=== PATIENT | male | born 1965 | race Caucasian/White ===

== ENCOUNTER 2020-10-20 09:08 | Emergency (ER) | payer MEDICARE ==
[~2020-10-20] VITALS: Ht 175 cm; Wt 110.0 kg
--- NOTE | 2020-10-20 09:43 | ED General ---
General Chief Complaint: General Problems/Pain Stated Complaint: DIARRHEA,LOW EXT SWELLING, WEAKNESS Nursing Triage Note: AMB TO ROOM REPORTS NEW TO AREA CONCERN OVER SWELLING IN LEGS,HAS CHRONIC BACK PAIN HE TAKE HYDROCODONE FOR. HAVNG PAIN IN RIB AREA THAT HYDROCODONE NOT HELPING.C/O BLOATING HAS BEEN CONSTIPATION TOOK LAXTIVE NOW HAVING LOOSE STOOL Source of Information: Patient Exam Limitations: No Limitations History of Present Illness Date Seen by Provider: Oct 20, 2020 Time Seen by Provider: 09:28 Initial Comments Patient is a 55-year-old male who presents to the emergency department with musculoskeletal rib and mid back pain, a little shortness of breath, bloating, diarrhea. Patient tells me that he has a history of hypertension, he takes multiple medications for this, just moved from [place] within the last week. Has established with [facility] last saw provider on of last week. States that he has been a little constipated took a couple of doses of laxative and now has had repeated bouts of diarrhea with five or six episodes since last night. Not mayda black nothing bloody. Patient reports that he is Covid vaccinated with Moderna. He is not aware of any Covid positive contacts during his move or recently. Not a diabetic. Recently started smoking. Recovering alcoholic. Patient states he took his home hydrocodone without any relief of symptoms. Patient is concerned about his feeling of generalized weakness and bloating. No abdominal pain. No nausea or vomiting. He is concerned about some swelling in his bilateral lower extremities. All other review of systems reviewed and negative except as stated. Timing/Duration: 1-2 Days Severity: Moderate Modifying Factors: improves with Immobilization; worse with Movement Associated Systoms: Malaise, Shortness of Air Allergies and Home Medications Allergies Coded Allergies: No Known Allergies (Verified Allergy, Unknown, 10/20/20) Patient Home Medication List Home Medication List Reviewed: Yes Review of Systems Review of Systems Constitutional: see HPI EENTM: no symptoms reported Respiratory: short of breath Cardiovascular: edema Gastrointestinal: diarrhea Genitourinary: no symptoms reported Musculoskeletal: back pain Skin: no symptoms reported All Other Systems Reviewed Negative Unless Noted: Yes Physical Exam Vital Signs Vital Signs - First Documented 10/20/20 09:28 Temp 36.0 Pulse 76 Resp 18 B/P (MAP) 132/66 (88) Pulse Ox 94 Capillary Refill : Less Than 3 Seconds Height, Weight, BMI Height: '" Weight: lbs. oz. kg; 35.00 BMI Method: General Appearance: No Apparent Distress, WD/WN Eyes: Bilateral Eye Normal Inspection, Bilateral Eye PERRL, Bilateral Eye EOMI HEENT: PERRL/EOMI Neck: Normal Inspection Respiratory: Lungs Clear, Normal Breath Sounds, No Accessory Muscle Use, No Respiratory Distress, Other (no significant reproducible tenderness to the ribs/lateral chest wall/thoraic paraspinous muscles) Cardiovascular: Regular Rate, Rhythm, Other (2+ radial pulses; 1-2+ pitting edema biulateral LE) Gastrointestinal: No Pulsatile Mass, Non Tender ((minimal tenderness epigastric)), Soft, Abnormal Bowel Sounds (slightly hyperactive) Back: Normal Inspection (multiple midline scars from previous back surgery), No Vertebral Tenderness Extremity: Normal Capillary Refill, Normal Inspection, Normal Range of Motion, No Calf Tenderness, Pedal Edema Neurologic/Psychiatric: Alert, Oriented x3, No Motor/Sensory Deficits, Normal Mood/Affect, Other (negative SLR bilat; 1+ DTR patella R>L; patient has weakness of bilateral hip flexors - more due to pain, states "right leg weaker than left"; normal sensory function; good dorsiflexion of feet bilat 5/5) Skin: Normal Color, Warm/Dry Progress/Results/Core Measures Suspected Sepsis SIRS Temperature: Pulse: 76 Respiratory Rate: 18 Laboratory Tests 10/20/20 09:48: White Blood Count 9.5 Blood Pressure 132 /66 Mean: 88 Laboratory Tests 10/20/20 09:48: Creatinine 0.89, Platelet Count 243, Total Bilirubin 0.6 Results/Orders Lab Results Laboratory Tests Test 10/20/20 09:36 10/20/20 09:48 Range/Units SARS-CoV-2 RNA (RT-PCR) Not Detected Not Detecte White Blood Count 9.5 4.3-11.0 10^3/uL Red Blood Count 5.04 4.30-5.52 10^6/uL Hemoglobin 15.8 13.3-17.7 g/dL Hematocrit 48 40-54 % Mean Corpuscular Volume 96 80-99 fL Mean Corpuscular Hemoglobin 31 25-34 pg Mean Corpuscular Hemoglobin Concent 33 32-36 g/dL Red Cell Distribution Width 12.9 10.0-14.5 % Platelet Count 243 130-400 10^3/uL Mean Platelet Volume 9.2 9.0-12.2 fL Immature Granulocyte % (Auto) 0 % Neutrophils (%) (Auto) 69 42-75 % Lymphocytes (%) (Auto) 18 12-44 % Monocytes (%) (Auto) 8 0-12 % Eosinophils (%) (Auto) 4 0-10 % Basophils (%) (Auto) 1 0-10 % Neutrophils # (Auto) 6.5 1.8-7.8 10^3/uL Lymphocytes # (Auto) 1.7 1.0-4.0 10^3/uL Monocytes # (Auto) 0.8 0.0-1.0 10^3/uL Eosinophils # (Auto) 0.4 H 0.0-0.3 10^3/uL Basophils # (Auto) 0.1 0.0-0.1 10^3/uL Immature Granulocyte # (Auto) 0.0 0.0-0.1 10^3/uL Sodium Level 139 135-145 MMOL/L Potassium Level 3.6 3.6-5.0 MMOL/L Chloride Level 110 H 98-107 MMOL/L Carbon Dioxide Level 20 L 21-32 MMOL/L Anion Gap 9 5-14 MMOL/L Blood Urea Nitrogen 14 7-18 MG/DL Creatinine 0.89 0.60-1.30 MG/DL Estimat Glomerular Filtration Rate 89 BUN/Creatinine Ratio 16 Glucose Level 119 H 70-105 MG/DL Calcium Level 9.1 8.5-10.1 MG/DL Corrected Calcium 9.0 8.5-10.1 MG/DL Total Bilirubin 0.6 0.1-1.0 MG/DL Aspartate Amino Transf (AST/SGOT) 29 5-34 U/L Alanine Aminotransferase (ALT/SGPT) 51 0-55 U/L Alkaline Phosphatase 66 40-136 U/L Total Protein 6.9 6.4-8.2 GM/DL Albumin 4.1 3.2-4.5 GM/DL My Orders Orders - CHETNA COLLINS MD Ed Iv/Invasive Line Start (10/20/20 09:35) Cbc With Automated Diff (10/20/20 09:35) Comprehensive Metabolic Panel (10/20/20 09:35) Chest 1 View, Ap/Pa Only (10/20/20 09:35) Covid 19 Inhouse Test (10/20/20 09:35) Isolation Central Supply Req (10/20/20 09:35) Orphenadrine Inj (Ed Only) (Norflex Inje (10/20/20 09:45) Medications Given in ED Current Medications Medications Dose Ordered Sig/Kristin Route Start Time Stop Time Status Last Admin Dose Admin Orphenadrine Citrate 30 mg ONCE ONCE IV 10/20/20 09:45 10/20/20 09:47 DC 10/20/20 09:55 30 MG Vital Signs/I&O 10/20/20 09:28 Temp 36.0 Pulse 76 Resp 18 B/P (MAP) 132/66 (88) Pulse Ox 94 Capillary Refill : Less Than 3 Seconds Blood Pressure Mean: 88 Progress Note : Time: 11:00 Progress Note Patient seen and examined, complaining of lower extremity edema mid and upper back pain, abdominal bloating. Evaluation today includes a physical exam, CBC, chemistry, Covid test and chest x-ray. Patient's Covid test is negative, labs and chest x-ray are reviewed and reassuring. Patient's vital signs have been stable. He feels a little bit better after muscle relaxers. Patient is encouraged to drink plenty of fluids. Follow-up if he has worsening symptoms he may need a repeat Covid test. Encouraged to follow-up with his primary care provider. He is comfortable with the plan of care and agreeable. All questions are sought and answered. Patient is stable for discharge. Diagnostic Imaging Diagonstic Imaging: Xray Plain Films/CT/US/NM/MRI: chest Comments [facility] [place], [place] NAME: BOBBY TREJO [facility] REC#: [id number] PT STATUS: REG ER : 1965 PHYSICIAN: CHETNA COLLINS MD ADMIT DATE: 10/20/20/ER Draft Date of Exam:10/20/20 CHEST 1 VIEW, AP/PA ONLY PATIENT HISTORY: SOB, weak bloated. TECHNIQUE: Single frontal view of the chest. COMPARISON: None FINDINGS: The lung volumes are normal. No focal consolidation is seen. No large pleural effusion or pneumothorax is seen. The cardiomediastinal silhouette is normal in size and contour. No acute osseous abnormality is seen. IMPRESSION: No acute pulmonary abnormality seen. Dictated on workstation # [id number] Dict: 10/20/20 1029 Trans: 10/20/20 1033 [facility] [id number] Interpreted by: ABDOUL CRESPO MD Electronically signed by: Departure Impression Primary Impression: Chronic thoracic back pain Qualified Codes: M54.6 - Pain in thoracic spine; G89.29 - Other chronic pain Additional Impressions: Pedal edema Weakness generalized Disposition: 01 HOME, SELF-CARE Condition: Stable Departure-Patient Inst. Decision time for Depature: 10:42 Referrals: KOLTON CROWDER APRN (PCP/Family) Primary Care Physician Patient Instructions: Chronic Pain (DC), Dependent Edema (DC) Add. Discharge Instructions: Continue your daily medications as previously prescribed. Drink lots of fluids to stay well-hydrated, consider Pedialyte fluid replacement. Stool softeners as needed for constipation. Follow-up with your primary care provider or return to the emergency room for any new, concerning or emergent symptoms. CHETNA COLLINS MD Oct 20, 2020 09:43
[2020-10-20] MEDS ORDERED: ORPHENADRINE 60 MG/2 ML (NORFLEX) AMP (ED ONLY) IV ONE (09:45)
[2020-10-20 09:59] LABS: BASOPHILS # (AUTO) 0.1 10^3/uL (0.0-0.1); BASOPHILS % (AUTO) 1 % (0-10); EOSINOPHILS # (AUTO) 0.4 10^3/uL (0.0-0.3); EOSINOPHILS % (AUTO) 4 % (0-10); HEMATOCRIT 48 % (40-54); HEMOGLOBIN 15.8 g/dL (13.3-17.7); LYMPHOCYTES # (AUTO) 1.7 10^3/uL (1.0-4.0); LYMPHOCYTES % (AUTO) 18 % (12-44); MEAN CORPUSCULAR HEMOGLOBIN 31 pg (25-34); MEAN CORPUSCULAR HGB CONC 33 g/dL (32-36); MEAN CORPUSCULAR VOLUME 96 fL (80-99); MEAN PLATELET VOLUME 9.2 fL (9.0-12.2); MONOCYTES # (AUTO) 0.8 10^3/uL (0.0-1.0); MONOCYTES % (AUTO) 8 % (0-12); NEUTROPHILS # (AUTO) 6.5 10^3/uL (1.8-7.8); NEUTROPHILS % (AUTO) 69 % (42-75); PLATELET COUNT 243 10^3/uL (130-400); WHITE BLOOD COUNT 9.5 10^3/uL (4.3-11.0)
[2020-10-20 10:09] LABS: ALBUMIN 4.1 GM/DL (3.2-4.5)
[2020-10-20 10:10] LABS: POTASSIUM 3.6 MMOL/L (3.6-5.0)
[2020-10-20 10:11] LABS: CALCIUM 9.1 MG/DL (8.5-10.1)
[2020-10-20 10:12] LABS: TOTAL PROTEIN 6.9 GM/DL (6.4-8.2)
[2020-10-20 10:14] LABS: BILIRUBIN,TOTAL 0.6 MG/DL (0.1-1.0)
[2020-10-20 10:16] LABS: CREATININE SERUM 0.89 MG/DL (0.60-1.30)
--- NOTE | 2020-10-20 10:34 | Diagnostic Imaging Report ---
PATIENT HISTORY: SOB, weak bloated. TECHNIQUE: Single frontal view of the chest. COMPARISON: None FINDINGS: The lung volumes are normal. No focal consolidation is seen. No large pleural effusion or pneumothorax is seen. The cardiomediastinal silhouette is normal in size and contour. No acute osseous abnormality is seen. IMPRESSION: No acute pulmonary abnormality seen. Dictated by: Dictated on workstation # [id number]
[2020-10-20 11:19] VITALS: BP 119/87
== END 2020-10-20 11:19 | disposition home or self-care (01) ==
LOC: ER 09:13
DX: M54.6 Pain in thoracic spine (principal); G89.29 Other chronic pain; R60.9 Edema, unspecified; R53.1 Weakness; I10 Essential (primary) hypertension; F17.210 Nicotine dependence, cigarettes, uncomplicated; Z20.822 Contact with and (suspected) exposure to COVID-19
CPT/HCPCS: 36415; 71045; 80053; 85025; 87636

== ENCOUNTER → 2021-01-10 | Outpatient (CLI) | payer MEDICARE ==
--- NOTE | 2021-01-10 13:02 | Diagnostic Imaging Report ---
PROCEDURE: CT abdomen without contrast. TECHNIQUE: Multiple contiguous axial images were obtained through the abdomen without the use of intravenous contrast. Auto Exposure Controls were utilized during the CT exam to meet ALARA standards for radiation dose reduction. INDICATION: Right upper quadrant pain of one week's duration. COMPARISON: No relevant comparison. Noncontrasted abdominal CT performed. FINDINGS: The liver's density is consistent with at least mild fatty infiltration. Gallbladder contains no appreciable stone. There was no bile duct dilatation. Low-density lesion in the left hepatic lobe is believed to be a cyst and is evaluated suboptimally owing to the fatty liver and the lack of contrast. No perihepatic or subcapsular fluid collection. There are no opaque kidney stones. There is no hydronephrosis. Spleen is unremarkable. The adrenals are negative. The pancreas is unremarkable. The aorta is nonaneurysmal. There is no small or large bowel obstruction. No ascites, abscess, hematoma, or acute fluid collection. The lung bases are nonacute. There are postsurgical changes to the spine. IMPRESSION: Fatty liver with probable cyst in the left hepatic lobe. No biliary pathology, hydronephrosis, or bowel obstruction. No acute or focal inflammatory process found. Dictated by: Dictated on workstation # [id number]
== END ==
LOC: RAD 11:52
PROVIDERS: ATTEND Nurse Practitioner Family
DX: K76.0 Fatty (change of) liver, not elsewhere classified (principal)
CPT/HCPCS: 74150

== ENCOUNTER 2021-01-22 18:23 | Emergency (ER) | payer MEDICARE ==
[~2021-01-22] VITALS: Ht 175.2 cm; Wt 106.8 kg
[2021-01-22 18:59] LABS: BASOPHILS # (AUTO) 0.1 10^3/uL (0.0-0.1); BASOPHILS % (AUTO) 1 % (0-10); EOSINOPHILS # (AUTO) 0.4 10^3/uL (0.0-0.3); EOSINOPHILS % (AUTO) 4 % (0-10); HEMATOCRIT 50 % (40-54); HEMOGLOBIN 16.7 g/dL (13.3-17.7); LYMPHOCYTES # (AUTO) 2.4 10^3/uL (1.0-4.0); LYMPHOCYTES % (AUTO) 25 % (12-44); MEAN CORPUSCULAR HEMOGLOBIN 31 pg (25-34); MEAN CORPUSCULAR HGB CONC 33 g/dL (32-36); MEAN CORPUSCULAR VOLUME 93 fL (80-99); MEAN PLATELET VOLUME 9.4 fL (9.0-12.2); MONOCYTES # (AUTO) 0.6 10^3/uL (0.0-1.0); MONOCYTES % (AUTO) 7 % (0-12); NEUTROPHILS # (AUTO) 5.9 10^3/uL (1.8-7.8); NEUTROPHILS % (AUTO) 63 % (42-75); PLATELET COUNT 265 10^3/uL (130-400); WHITE BLOOD COUNT 9.4 10^3/uL (4.3-11.0)
[2021-01-22] MEDS ORDERED: NS IV 1000 ML 1,000 ML IV SCH (19:00)
[2021-01-22] MEDS ORDERED: ASPIRIN 81 MG CHEW (CHILDREN'S ASA) PO ONE (19:00)
--- NOTE | 2021-01-22 19:12 | ED Respiratory ---
General Chief Complaint: Respiratory Problems Stated Complaint: STARK,SOB Nursing Triage Note: ARRIVES VIA POV TO ROOM 6. PATIENT AMBULATES TO ROOM WITH ASSITANCE OF A CANE. ALERT AND ORIENTED X4. PRESENTS TODAY WITH A COMPLAINT OF NEW ONSET SHORTNESS OF BREATH Source: patient Exam Limitations: no limitations History of Present Illness Date Seen by Provider: Jan 22, 2021 Time Seen by Provider: 18:30 Initial Comments Patient ER by private conveyance from [facility] with chief complaint he was there because he was having productive cough shortness of air and exertional dyspnea past 2 to 3 days. No chest pain. He has had some right upper quadrant abdominal discomfort under his ribs. Worse on deep inspiration. No fever but does have some chills. He had negative Covid and influenza swab at the clinic he might need CT of his chest rule out a blood clot. He does not recall ambulance. He does take flecainide for irregular heart rate from his java user interface developer back in [place] however he has not followed with a java user interface developer here and does not take blood thinners. Does not take antiplatelets. He does not anything for the pain right now. He has a history of back problems with rods in his back but no abdominal surgeries. No nausea vomiting dysuria diarrhea or constipation. He does endorse upper respiratory tract congestion. In the past he had a CT of his head and was told that it revealed a previous stroke and he has a little bit of chronic right-sided weakness related to this. Allergies and Home Medications Allergies Coded Allergies: No Known Allergies (Verified Allergy, Unknown, 10/20/20) Patient Home Medication List Home Medication List Reviewed: Yes Review of Systems Review of Systems Constitutional: No chills, No diaphoresis EENTM: nose congestion; No ear discharge, No ear pain Respiratory: see HPI, cough, phlegm, short of breath Gastrointestinal: abdominal pain; No constipation, No diarrhea, No nausea Genitourinary: No discharge, No dysuria Musculoskeletal: back pain (Chronic); No joint pain Skin: No change in color, No pruritus, No rash All Other Systems Reviewed Negative Unless Noted: Yes Past Djqocyq-Ulqjbm-Ufgsmu Hx Patient Social History Tobacco Use?: Yes Tobacco type used: Cigarettes Use of E-Cig and/or Vaping dev: No Substance use?: No Alcohol Use?: No Immunizations Up To Date First/Initial COVID19 Vaccinat: 05/30 Second COVID19 Vaccination Daniel: 06/23 Third COVID19 Vaccination Date: [facility] Physical Exam Vital Signs - First Documented 01/22/21 18:34 Temp 36.9 Pulse 81 Resp 16 B/P (MAP) 149/117 (128) Pulse Ox 96 O2 Delivery Room Air Capillary Refill : Less Than 3 Seconds Height: '" Weight: lbs. oz. kg; 34.00 BMI Method: General Appearance: no apparent distress, obese Eyes: Bilateral Eye Normal Inspection, Bilateral Eye PERRL, Bilateral Eye EOMI HEENT: PERRL/EOMI, normal ENT inspection, pharynx normal Neck: full range of motion, supple, normal inspection Respiratory: lungs clear, normal breath sounds, no respiratory distress (Oxygen saturations 98 to 90% without labored breathing, increased accessory muscle use, retractions, tripoding etc.), no accessory muscle use Cardiovascular: normal peripheral pulses, regular rate, rhythm, no edema Gastrointestinal: normal bowel sounds, non tender Extremities: non-tender, normal inspection, normal capillary refill Neurologic/Psychiatric: alert, normal mood/affect, oriented x 3 Skin: normal color, warm/dry Progress/Results/Core Measures Suspected Sepsis SIRS Temperature: Pulse: 81 Respiratory Rate: 16 Laboratory Tests 01/22/21 18:45: White Blood Count 9.4 Blood Pressure 149 /117 Mean: 128 Laboratory Tests 01/22/21 18:45: Creatinine 0.96, INR Comment 0.9, Platelet Count 265, Total Bilirubin 0.5 Results/Orders Lab Results Laboratory Tests Test 01/22/21 18:45 Range/Units White Blood Count 9.4 4.3-11.0 10^3/uL Red Blood Count 5.37 4.30-5.52 10^6/uL Hemoglobin 16.7 13.3-17.7 g/dL Hematocrit 50 40-54 % Mean Corpuscular Volume 93 80-99 fL Mean Corpuscular Hemoglobin 31 25-34 pg Mean Corpuscular Hemoglobin Concent 33 32-36 g/dL Red Cell Distribution Width 13.5 10.0-14.5 % Platelet Count 265 130-400 10^3/uL Mean Platelet Volume 9.4 9.0-12.2 fL Immature Granulocyte % (Auto) 1 % Neutrophils (%) (Auto) 63 42-75 % Lymphocytes (%) (Auto) 25 12-44 % Monocytes (%) (Auto) 7 0-12 % Eosinophils (%) (Auto) 4 0-10 % Basophils (%) (Auto) 1 0-10 % Neutrophils # (Auto) 5.9 1.8-7.8 10^3/uL Lymphocytes # (Auto) 2.4 1.0-4.0 10^3/uL Monocytes # (Auto) 0.6 0.0-1.0 10^3/uL Eosinophils # (Auto) 0.4 H 0.0-0.3 10^3/uL Basophils # (Auto) 0.1 0.0-0.1 10^3/uL Immature Granulocyte # (Auto) 0.1 0.0-0.1 10^3/uL Prothrombin Time 12.8 12.2-14.7 SEC INR Comment 0.9 0.8-1.4 Activated Partial Thromboplast Time 34 24-35 SEC D-Dimer <= 0.27 0.00-0.49 UG/ML Sodium Level 140 135-145 MMOL/L Potassium Level 3.9 3.6-5.0 MMOL/L Chloride Level 107 98-107 MMOL/L Carbon Dioxide Level 21 21-32 MMOL/L Anion Gap 12 5-14 MMOL/L Blood Urea Nitrogen 14 7-18 MG/DL Creatinine 0.96 0.60-1.30 MG/DL Estimat Glomerular Filtration Rate 82 BUN/Creatinine Ratio 15 Glucose Level 134 H 70-105 MG/DL Calcium Level 9.2 8.5-10.1 MG/DL Corrected Calcium 9.1 8.5-10.1 MG/DL Magnesium Level 2.0 1.6-2.4 MG/DL Total Bilirubin 0.5 0.1-1.0 MG/DL Aspartate Amino Transf (AST/SGOT) 57 H 5-34 U/L Alanine Aminotransferase (ALT/SGPT) 89 H 0-55 U/L Alkaline Phosphatase 75 40-136 U/L Myoglobin 46.8 10.0-92.0 NG/ML Troponin I < 0.028 <0.028 NG/ML B-Type Natriuretic Peptide < 10.0 <100.0 PG/ML Total Protein 7.2 6.4-8.2 GM/DL Albumin 4.1 3.2-4.5 GM/DL Lipase 27 8-78 U/L My Orders Orders - LUCINA,NNEKA J Ed Iv/Invasive Line Start (01/22/21 18:51) Ns Iv 1000 Ml (Sodium Chloride 0.9%) (01/22/21 19:00) Cbc With Automated Diff (01/22/21 18:51) Magnesium (01/22/21 18:51) Ekg Tracing (01/22/21 18:51) Comprehensive Metabolic Panel (01/22/21 18:51) Myoglobin Serum (01/22/21 18:51) Protime With Inr (01/22/21 18:51) Partial Thromboplastin Time (01/22/21 18:51) O2 (01/22/21 18:51) Monitor-Rhythm Ecg Trace Only (01/22/21 18:51) Lipid Panel (01/23/21 06:00) Ed Iv/Invasive Line Start (01/22/21 18:51) Lipase (01/22/21 18:51) Bnp [place] (01/22/21 18:51) Troponin I Paige (01/22/21 18:51) Aspirin Chewable Tablet (Baby Aspirin Ch (01/22/21 19:00) Covid-19 External Lab Results (01/22/21 19:02) Chest Pa/Lat (2 View) (01/22/21 18:51) Fibrin Degradation Products (01/22/21 18:45) Pantoprazole Injection (Protonix Injecti (01/22/21 19:15) Ct Abdomen/Pelvis W (01/22/21 19:52) Iohexol Injection (Omnipaque 350 Mg/Ml 1 (01/22/21 20:30) Received Contrast (Hold Metformin- Contr (01/22/21 20:30) Ns (Ivpb) (Sodium Chloride 0.9% Ivpb Bag (01/22/21 20:30) Medications Given in ED Current Medications Medications Dose Ordered Sig/Kristin Route Start Time Stop Time Status Last Admin Dose Admin Aspirin 324 mg ONCE ONCE PO 01/22/21 19:00 01/22/21 19:01 DC 01/22/21 19:05 324 MG Iohexol 100 ml ONCE ONCE IV 01/22/21 20:30 01/22/21 20:31 DC 01/22/21 21:06 100 ML Pantoprazole 40 mg ONCE ONCE IV 01/22/21 19:15 01/22/21 19:16 DC 01/22/21 19:34 40 MG Sodium Chloride 100 ml ONCE ONCE IV 01/22/21 20:30 01/22/21 20:31 DC 01/22/21 21:06 80 ML Vital Signs/I&O 01/22/21 18:34 Temp 36.9 Pulse 81 Resp 16 B/P (MAP) 149/117 (128) Pulse Ox 96 O2 Delivery Room Air Capillary Refill : Less Than 3 Seconds Blood Pressure Mean: 128 Progress Note #1: Time: 19:09 Progress Note Well-appearing individual with aseptic vital signs. EKG shows a sinus rhythm in the 80s. Suspect he may have underlying atrial fibrillation. With a D-dimer as a pulmonary embolism is not high on the differential without tachycardia, hypoxemia, hemoptysis or #1 differential. #1 differential is Pneumonia. Also concern for pancreatitis, biliary tract, PUD, gallbladder with right upper quadrant abdominal pain versus a super diaphragmatic pneumonia. Progress Note #2: Time: 21:24 Progress Note Patient's pain is under control. He has a marginal elevation of his AST and ALT. He needs an appropriate outpatient work-up of his right upper quadrant a bdominal pain so we will refer him on to Dr. Leon for potential gallbladder or EGD work-up as appropriate. We will plan on omeprazole and Carafate ECG Initial ECG Impression Date: Jan 22, 2021 Initial ECG Impression Time: 18:46 Initial ECG Rate: 83 Initial ECG Rhythm: Normal Sinus Initial ECG Intervals: QT (467) Initial ECG Impression: Normal Initial ECG Comparisson: No Previous ECG Available Comment Normal sinus rhythm with borderline ICD and QTc propagation. Diagnostic Imaging Diagonstic Imaging: Xray Plain Films/CT/US/NM/MRI: chest (2v) Comments [facility]. [place], [place] NAME: BOBBY TREJO [facility] REC#: [id number] PT STATUS: REG ER : 1965 PHYSICIAN: NNEKA VREDUGO MD ADMIT DATE: 01/22/21/ER Draft Date of Exam:01/22/21 CHEST PA/LAT (2 VIEW) INDICATION: Chest pain. EXAMINATION: PA and lateral views were obtained. COMPARISON: Prior examination from 10/20/2020. FINDINGS: The heart size, mediastinal configuration, and pulmonary vascularity are within normal limits. There is no pleural effusion, pneumothorax, or pneumonia. The osseous structures are unremarkable. IMPRESSION: No acute cardiopulmonary abnormality. Dictated on workstation # [id number] Dict: 01/22/211914 Trans: 01/22/211916 PJE [id number] Interpreted by: MARTHA ARGUETA MD Electronically signed by: Reviewed: Reviewed by Me Diagonstic Imaging: CT Plain Films/CT/US/NM/MRI: abdomen, pelvis Reviewed: Reviewed by Me Departure Impression Primary Impression: Right upper quadrant abdominal pain Disposition: HOME, SELF-CARE Condition: Stable Departure-Patient Inst. Decision time for Depature: 21:25 Referrals: VARGAS,LOCAL PHYSICIAN (PCP) Primary Care Physician KOLTON CROWDER APRN (Family) Primary Care Physician DELBRET LEON MD Patient Instructions: Gallbladder Diet Add. Discharge Instructions: Your CT did not show any acute pathology however the gallbladder was not well visualized and you can follow-up with Dr. Leon, general surgery by calling for an appointment to discuss getting either an ultrasound or other appropriate work-up set up. Omeprazole 40 mg daily to reduce your stomach acid production. Carafate half an hour before meals and at bedtime to help protect the lining of your stomach against ulcers. Return to the ER for intractable vomiting or pain. Tums, Rolaids, Maalox, Mylanta as necessary for pain. Tylenol 1000 mg every 8 hours as necessary for pain. Ibuprofen 800 mg every 8 hours as necessary for pain. Follow-up with your primary care doctor to discuss a referral to cardiology to help manage your heart problems. All discharge instructions reviewed with patient and/or family. Voiced understanding. Scripts Sucralfate (Carafate) 1 Gm Tablet 1 GM PO QIDACHS for 14 Days, #56 TAB 0 Refills Prov: NNEKA VERDUGO 01/22/21 Omeprazole (Omeprazole) 40 Mg Capsule.dr 40 MG PO DAILY for 30 Days, #30 CAP 0 Refills Prov: NNEKA VERDUGO 01/22/21 Copy Copies To 1: DELBERT LEON MD, TITUS J Jan 22, 2021 19:12
[2021-01-22 19:13] LABS: ALBUMIN 4.1 GM/DL (3.2-4.5); POTASSIUM 3.9 MMOL/L (3.6-5.0)
[2021-01-22 19:15] LABS: CALCIUM 9.2 MG/DL (8.5-10.1)
[2021-01-22] MEDS ORDERED: PANTOPRAZOLE 40 MG (PROTONIX) VIAL IV ONE (19:15)
[2021-01-22 19:16] LABS: TOTAL PROTEIN 7.2 GM/DL (6.4-8.2)
--- NOTE | 2021-01-22 19:17 | Diagnostic Imaging Report ---
INDICATION: Chest pain. EXAMINATION: PA and lateral views were obtained. COMPARISON: Prior examination from 10/20/2020. FINDINGS: The heart size, mediastinal configuration, and pulmonary vascularity are within normal limits. There is no pleural effusion, pneumothorax, or pneumonia. The osseous structures are unremarkable. IMPRESSION: No acute cardiopulmonary abnormality. Dictated by: Dictated on workstation # [id number]
[2021-01-22 19:18] LABS: BILIRUBIN,TOTAL 0.5 MG/DL (0.1-1.0)
[2021-01-22 19:22] LABS: FIBRIN DEGRADATION PRODUCTS <= 0.27 UG/ML (0.00-0.49); INR 0.9 (0.8-1.4); PARTIAL THROMBOPLASTIN TIME 34 SEC (24-35); PROTHROMBIN TIME PATIENT 12.8 SEC (12.2-14.7)
[2021-01-22] MEDS ORDERED: NS 100 ML (IVPB) BAG IV ONE (20:30)
[2021-01-22] MEDS ORDERED: HOLD METFORMIN - RECEIVED CONTRAST 20 ML VIAL IV SCH (20:30)
[2021-01-22] MEDS ORDERED: IOHEXOL 350 MG/ML 100 ML (OMNIPAQUE 350) VIAL IV ONE (20:30)
[2021-01-22 20:37] LABS: CREATININE SERUM 0.96 MG/DL (0.60-1.30)
--- NOTE | 2021-01-22 21:10 | Diagnostic Imaging Report ---
PROCEDURE: CT abdomen and pelvis with contrast. TECHNIQUE: Multiple contiguous axial images were obtained through the abdomen and pelvis after administration of intravenous contrast. Auto Exposure Controls were utilized during the CT exam to meet ALARA standards for radiation dose reduction. All CT scans use one or more of the following dose optimizing techniques: automated exposure control, MA and/or KvP adjustment based on patient size and exam type or iterative reconstruction. INDICATION: Acute onset right upper quadrant pain. The lung bases are clear. There is fatty infiltration of the liver. The gallbladder is decompressed. There is a moderate amount of food residue in the stomach. Portal vein is patent. Common duct is not dilated. Pancreas appears normal. Spleen is not enlarged. Kidneys and adrenals appear normal. Patient has had long segment fusion of the lumbar spine. Small bowel is not dilated. There is diverticulosis of the colon without evidence of diverticulitis. There is no evidence for appendicitis. There is no intraperitoneal free air or free fluid. Urinary bladder is normal. IMPRESSION: Uncomplicated diverticulosis of the colon. Hepatic steatosis. No acute abnormality is seen. Dictated by: Dictated on workstation # [id number]
[2021-01-22] MEDS ORDERED: SUCR1TAB36 PO (21:36)
[2021-01-22] MEDS ORDERED: OMEP40CA6 PO (21:36)
[2021-01-22 21:43] VITALS: BP 141/106
[2021-02-04] MEDS ORDERED: HYDR-3817 PO (12:51)
== END 2021-01-22 21:43 | disposition home or self-care (01) ==
LOC: EDUNIT# 18:23 → ER 18:24
DX: R10.11 Right upper quadrant pain (principal); E66.9 Obesity, unspecified; Z72.0 Tobacco use; Z68.34 Body mass index [BMI] 34.0-34.9, adult; Z20.822 Contact with and (suspected) exposure to COVID-19
CPT/HCPCS: 36415; 71046; 74177; 80053; 83690; 83735; 83874; 83880; 84484; 85025; 85379; 85610; 85730; 93005; 93041; 96361; 96374

== ENCOUNTER 2021-01-24 09:27 | Emergency (ER) | payer MEDICARE ==
[~2021-01-24] VITALS: Ht 175 cm; Wt 115.0 kg
[~2021-01-24 09:27] MED LIST: OMEP40CA6 PO; SUCR1TAB36 PO
[2021-01-24] MEDS ORDERED: fentaNYL INJ 100 MCG/2 ML AMP IVP ONE (11:15)
[2021-01-24] MEDS ORDERED: KETOROLAC 30 MG/ML VIAL IVP ONE (11:15)
--- NOTE | 2021-01-24 11:21 | ED Abdominal Pain ---
General Chief Complaint: Abdominal/GI Problems Stated Complaint: RLQ PAIN Nursing Triage Note: AMB TO ED WITH C/O R UPPER QUAD PAIN ONSET X1 WEEK AGO. HAS BEEN SEEN IN ED FOR AND TO HAVE FOLLOW UP WITH DR LEON CONCERING GALLBLADDER. ATE SALAD WHEN ONSET OF WORSE PAIN. WENT TO DR LEON OFFICE AND STAFF TOLD HIM TO COME TO ER. Source of Information: Patient Exam Limitations: No Limitations History of Present Illness Date Seen by Provider: Jan 24, 2021 Time Seen by Provider: 11:19 Initial Comments To ER with severe right upper quadrant abdominal pain that started this morning after eating a bowl of cereal at about 9 AM. He had nausea without vomiting. No fevers or chills. He was seen here in the ER 2 days ago for the same and referred to Dr. Leon and is to see Dr. Leon on 01/28/2021. He called the office this morning and was referred to the emergency room. Timing/Duration: 4-6 Hours, 1-2 Days Severity/Quality: Moderate, Severe Location: RUQ Radiation: No Radiation Activities at Onset: None Associated Symptoms: Nausea/Vomiting Allergies and Home Medications Allergies Coded Allergies: No Known Allergies (Verified Allergy, Unknown, 10/20/20) Patient Home Medication List Home Medication List Reviewed: Yes Hydrocodone/Acetaminophen (Hydrocodone-Acetamin 5-325 mg) 1 Each Tablet, 1 TAB PO Q4H PRN for PAIN-MODERATE (5-7) Prescribed by: JURGEN GROVES on 01/24/21 1154 Omeprazole (Omeprazole) 40 Mg Capsule.dr 40 MG PO DAILY Prescribed by: NNEKA VERDUGO on 01/22/212135 Sucralfate (Carafate) 1 Gm Tablet, 1 GM PO QIDACHS Prescribed by: NNEKA VERDUGO on 01/22/212135 Review of Systems Review of Systems Constitutional: see HPI EENTM: No Symptoms Reported Respiratory: No Symptoms Reported Cardiovascular: No Symptoms Reported Gastrointestinal: See HPI, Abdominal Pain, Nausea Genitourinary: No Symptoms Reported Musculoskeletal: no symptoms reported Skin: no symptoms reported Psychiatric/Neurological: No Symptoms Reported Endocrine: No Symptoms Reported Hematologic/Lymphatic: No Symptoms Reported Past Wudizyq-Cdhist-Aoxjld Hx Immunizations Up To Date First/Initial COVID19 Vaccinat: JUNE Second COVID19 Vaccination Daniel: June COVID19 Vaccination Date: MODERTX COVID19 Vaccine Cage Maker: RKISHAN Physical Exam Vital Signs Vital Signs - First Documented 01/24/21 10:56 Pulse 83 Resp 18 B/P (MAP) 111/85 (94) Pulse Ox 94 O2 Delivery Room Air Capillary Refill : Less Than 3 Seconds Height/Weight/BMI Height: '" Weight: lbs. oz. kg; 37.00 BMI Method: General Appearance: WD/WN, no apparent distress HEENT: PERRL/EOMI, normal ENT inspection Respiratory: no respiratory distress, no accessory muscle use Cardiovascular: regular rate, rhythm, no murmur Gastrointestinal: normal bowel sounds, soft, tenderness Extremities: normal range of motion, non-tender Neurologic/Psychiatric: alert, normal mood/affect, oriented x 3 Skin: normal color, warm/dry Progress/Results/Core Measures Results/Orders Lab Results Laboratory Tests Test 01/24/21 11:23 Range/Units White Blood Count 9.3 4.3-11.0 10^3/uL Red Blood Count 5.56 H 4.30-5.52 10^6/uL Hemoglobin 17.2 13.3-17.7 g/dL Hematocrit 51 40-54 % Mean Corpuscular Volume 92 80-99 fL Mean Corpuscular Hemoglobin 31 25-34 pg Mean Corpuscular Hemoglobin Concent 34 32-36 g/dL Red Cell Distribution Width 13.2 10.0-14.5 % Platelet Count 260 130-400 10^3/uL Mean Platelet Volume 8.9 L 9.0-12.2 fL Immature Granulocyte % (Auto) 0 % Neutrophils (%) (Auto) 65 42-75 % Lymphocytes (%) (Auto) 20 12-44 % Monocytes (%) (Auto) 8 0-12 % Eosinophils (%) (Auto) 5 0-10 % Basophils (%) (Auto) 1 0-10 % Neutrophils # (Auto) 6.1 1.8-7.8 10^3/uL Lymphocytes # (Auto) 1.9 1.0-4.0 10^3/uL Monocytes # (Auto) 0.8 0.0-1.0 10^3/uL Eosinophils # (Auto) 0.4 H 0.0-0.3 10^3/uL Basophils # (Auto) 0.1 0.0-0.1 10^3/uL Immature Granulocyte # (Auto) 0.0 0.0-0.1 10^3/uL Sodium Level 139 135-145 MMOL/L Potassium Level 3.9 3.6-5.0 MMOL/L Chloride Level 104 98-107 MMOL/L Carbon Dioxide Level 23 21-32 MMOL/L Anion Gap 12 5-14 MMOL/L Blood Urea Nitrogen 12 7-18 MG/DL Creatinine 0.92 0.60-1.30 MG/DL Estimat Glomerular Filtration Rate 86 BUN/Creatinine Ratio 13 Glucose Level 130 H 70-105 MG/DL Calcium Level 9.9 8.5-10.1 MG/DL Corrected Calcium 9.6 8.5-10.1 MG/DL Total Bilirubin 0.6 0.1-1.0 MG/DL Aspartate Amino Transf (AST/SGOT) 51 H 5-34 U/L Alanine Aminotransferase (ALT/SGPT) 85 H 0-55 U/L Alkaline Phosphatase 75 40-136 U/L Total Protein 7.6 6.4-8.2 GM/DL Albumin 4.4 3.2-4.5 GM/DL Lipase 25 8-78 U/L My Orders Orders - JURGEN GROVES [employer] OPERATIONS SPECIALIST Cbc With Automated Diff (01/24/21 11:15) Comprehensive Metabolic Panel (01/24/21 11:15) Lipase (01/24/21 11:15) Ed Iv/Invasive Line Start (01/24/21 11:15) Ketorolac Injection (Toradol Injection) (01/24/21 11:15) Fentanyl Inj (Sublimaze Injection) (01/24/21 11:15) Medications Given in ED Current Medications Medications Dose Ordered Sig/Kristin Route Start Time Stop Time Status Last Admin Dose Admin Fentanyl Citrate 50 mcg ONCE ONCE IVP 01/24/21 11:15 01/24/21 11:17 DC 01/24/21 11:34 50 MCG Ketorolac Tromethamine 15 mg ONCE ONCE IVP 01/24/21 11:15 01/24/21 11:17 DC 01/24/21 11:33 15 MG Vital Signs/I&O 01/24/21 01/24/21 10:56 12:24 Pulse 83 73 Resp 18 18 B/P (MAP) 111/85 (94) 151/100 Pulse Ox 94 94 O2 Delivery Room Air Room Air Blood Pressure Mean: 94 Departure Communication (Admissions) 1152-I spoke with Dr. Leon, recommends follow-up with him in the clinic as scheduled on Wednesday and he will take care of ordering the gallbladder ult rasound. Patient is feeling better at this time. Impression Primary Impression: Right upper quadrant abdominal pain Disposition: HOME, SELF-CARE Condition: Improved Departure-Patient Inst. Decision time for Depature: 11:53 Referrals: NO,LOCAL PHYSICIAN (PCP) Primary Care Physician KOLTON CROWDER APRN (Family) Primary Care Physician Patient Instructions: No Instuctions Given Add. Discharge Instructions: 1. Follow-up with Dr. Leon as scheduled. Return to ER for any concerns. Pain medication as directed. All discharge instructions reviewed with patient and/or family. Voiced understanding. Scripts Hydrocodone/Acetaminophen (Hydrocodone-Acetamin 5-325 mg) 1 Each Tablet 1 TAB PO Q4H PRN for PAIN-MODERATE (5-7), #10 TAB Prov: JURGEN GROVES APRN 01/24/21 JURGEN GROVES APRN Jan 24, 2021 11:21
[2021-01-24 11:29] LABS: BASOPHILS # (AUTO) 0.1 10^3/uL (0.0-0.1); BASOPHILS % (AUTO) 1 % (0-10); EOSINOPHILS # (AUTO) 0.4 10^3/uL (0.0-0.3); EOSINOPHILS % (AUTO) 5 % (0-10); HEMATOCRIT 51 % (40-54); HEMOGLOBIN 17.2 g/dL (13.3-17.7); LYMPHOCYTES # (AUTO) 1.9 10^3/uL (1.0-4.0); LYMPHOCYTES % (AUTO) 20 % (12-44); MEAN CORPUSCULAR HEMOGLOBIN 31 pg (25-34); MEAN CORPUSCULAR HGB CONC 34 g/dL (32-36); MEAN CORPUSCULAR VOLUME 92 fL (80-99); MEAN PLATELET VOLUME 8.9 fL (9.0-12.2); MONOCYTES # (AUTO) 0.8 10^3/uL (0.0-1.0); MONOCYTES % (AUTO) 8 % (0-12); NEUTROPHILS # (AUTO) 6.1 10^3/uL (1.8-7.8); NEUTROPHILS % (AUTO) 65 % (42-75); PLATELET COUNT 260 10^3/uL (130-400); WHITE BLOOD COUNT 9.3 10^3/uL (4.3-11.0)
[2021-01-24 11:39] LABS: ALBUMIN 4.4 GM/DL (3.2-4.5); POTASSIUM 3.9 MMOL/L (3.6-5.0)
[2021-01-24 11:40] LABS: CALCIUM 9.9 MG/DL (8.5-10.1)
[2021-01-24 11:41] LABS: TOTAL PROTEIN 7.6 GM/DL (6.4-8.2)
[2021-01-24 11:43] LABS: BILIRUBIN,TOTAL 0.6 MG/DL (0.1-1.0)
[2021-01-24 11:45] LABS: CREATININE SERUM 0.92 MG/DL (0.60-1.30)
[2021-01-24] MEDS ORDERED: ACHD5005 PO (11:53)
[2021-01-24 12:24] VITALS: BP 151/100
== END 2021-01-24 12:13 | disposition home or self-care (01) ==
LOC: EDUNIT# 09:27 → ER 09:28
DX: R10.11 Right upper quadrant pain (principal)
CPT/HCPCS: 36415; 80053; 83690; 85025

== ENCOUNTER → 2021-01-30 | Outpatient (CLI) | payer MEDICARE ==
[~2021-01-30] MED LIST changes: +ACHD5005 PO; +AMIT50TA3 PO; +ASPI-999 PO; +ATOR40TA70 PO; +BUPR1PAT20 TD; +EMPA10TA PO; +FLEC100T PO; +GBPN600T PO; +HYDR-3817 PO; +LISI40TA9 PO; +METF-397 PO; +NIFE90TA40 PO; +PANT40TA52 PO; +SUCR1TAB PO
--- NOTE | 2021-01-30 08:56 | Diagnostic Imaging Report ---
PROCEDURE: US Gallbladder. TECHNIQUE: Multiple real-time grayscale images were obtained over the right upper quadrant in various projections. INDICATION: Right upper quadrant abdominal pain. COMPARISON: CT abdomen and pelvis dated 01/22/2021 FINDINGS: Pancreas is not well visualized secondary to overlying bowel gas. Liver is enlarged and diffusely hyperechoic suggestive of underlying hepatic steatosis. There is relative sparing around the gallbladder fossa. No focal masses are seen. There is no sonographic evidence of intra or extrahepatic biliary ductal dilatation. Common bile duct is not well visualized. Gallbladder is visualized and appears to be incompletely distended. There is small hyperechoic focus within the lumen of the gallbladder adjacent to the gallbladder wall. It measures 3 to 4 mm in diameter. There is no posterior acoustic shadowing. This is favored to represent a small polyp. There is otherwise no evidence of cholelithiasis, gallbladder wall thickening, nor pericholecystic free fluid. Abdominal aorta and IVC are also not well visualized secondary to overlying bowel gas. Right kidney has an unremarkable sonographic appearance. It measures 12.1 cm in length. There is no evidence of hydronephrosis, calculus, nor mass. No ascites is seen. IMPRESSION: 1. Hepatomegaly with hepatic steatosis. 2. No cholelithiasis or sonographic evidence acute cholecystitis. 3. Small gallbladder polyp. One-year follow-up is recommended to ensure stability. Dictated by: Dictated on workstation # [id number]
== END ==
LOC: RAD 08:00
PROVIDERS: ATTEND Surgery
DX: K76.0 Fatty (change of) liver, not elsewhere classified (principal); K82.4 Cholesterolosis of gallbladder; R16.0 Hepatomegaly, not elsewhere classified
CPT/HCPCS: 76705

== ENCOUNTER 2021-01-31 10:13 | Outpatient (CLI) | payer MEDICARE ==
[~2021-01-31] VITALS: Ht 175.3 cm; Wt 116.0 kg
[~2021-01-31 10:13] MED LIST changes: -AMIT50TA3 PO; -ASPI-999 PO; -ATOR40TA70 PO; -BUPR1PAT20 TD; -EMPA10TA PO; -FLEC100T PO; -GBPN600T PO; -HYDR-3817 PO; -LISI40TA9 PO; -METF-397 PO; -NIFE90TA40 PO; -PANT40TA52 PO; -SUCR1TAB PO
[2021-01-31] MEDS ORDERED: BUPR1PAT20 TD (10:38)
[2021-01-31] MEDS ORDERED: METF-397 PO (10:38)
[2021-01-31] MEDS ORDERED: LISI40TA9 PO (10:38)
[2021-01-31] MEDS ORDERED: FLEC100T PO (10:38)
[2021-01-31] MEDS ORDERED: ATOR40TA70 PO (10:38)
[2021-01-31] MEDS ORDERED: NIFE90TA40 PO (10:38)
[2021-01-31] MEDS ORDERED: PANT40TA52 PO (10:38)
[2021-01-31] MEDS ORDERED: AMIT50TA3 PO (10:38)
[2021-01-31] MEDS ORDERED: GBPN600T PO (10:38)
[2021-01-31] MEDS ORDERED: SUCR1TAB PO (10:38)
[2021-01-31] MEDS ORDERED: EMPA10TA PO (10:38)
== END 2021-01-31 10:45 | disposition home or self-care (01) ==
LOC: PREOP 10:13
PROVIDERS: ATTEND Surgery
DX: Z01.818 Encounter for other preprocedural examination (principal)

== ENCOUNTER 2021-02-04 10:31 | Day surgery (SDC) | payer MEDICARE ==
[~2021-02-04] VITALS: Ht 175.3 cm; Wt 116.0 kg
[2021-02-04] VITALS (12 sets, daily range): BP systolic 109–157; BP diastolic 71–107
[~2021-02-04 10:31] MED LIST changes: +AMIT50TA3 PO; +ATOR40TA70 PO; +BUPR1PAT20 TD; +EMPA10TA PO; +FLEC100T PO; +GBPN600T PO; +LISI40TA9 PO; +METF-397 PO; +NIFE90TA40 PO; +PANT40TA52 PO; +SUCR1TAB PO
[2021-02-04] MEDS ORDERED: ceFAZolin 2 GM IV Premixed 50 ML IV ONE (10:45)
[2021-02-04] MEDS: LACTATED RINGERS 1,000 ML IV PRN ×2 (11:36→13:42)
[2021-02-04] MEDS ORDERED: LIDOCAINE/EPI 1%-1:200,000 (XYLOCAINE) 30 ML VIAL ONE (11:47)
[2021-02-04] MEDS ORDERED: fentaNYL INJ 100 MCG/2 ML AMP IV SCH (12:00)
[2021-02-04] MEDS ORDERED: LACTATED RINGERS 1,000 ML IV PRN (12:00)
[2021-02-04] MEDS ORDERED: fentaNYL INJ 100 MCG/2 ML AMP ONE ×3 (12:02→14:42)
[2021-02-04] MEDS ORDERED: NEOSTIGMINE 3 MG/3 ML VIAL ONE (12:32)
[2021-02-04] MEDS ORDERED: GLYCOPYRROLATE 0.2 MG/ML (ROBINUL) 2 ML VIAL ONE (12:32)
[2021-02-04] MEDS ORDERED: MIDAZOLAM 2 MG/2 ML (VERSED) VIAL ONE (12:32)
[2021-02-04] MEDS ORDERED: proPOfol 200 MG/20 ML (DIPRIVAN) VIAL IV ONE (12:32)
[2021-02-04] MEDS ORDERED: LIDOCAINE PF 2% 5 ML (XYLOCAINE) VIAL ONE (12:32)
[2021-02-04] MEDS ORDERED: ONDANSETRON 4 MG/2 ML (SDV) Z0FRAN ONE ×3 (12:32→14:42)
[2021-02-04] MEDS ORDERED: ROCURONIUM 50 MG/5 ML (ZEMURON) VIAL IV ONE (12:32)
--- NOTE | 2021-02-04 12:49 | Progress Note-Pre Operative ---
Pre-Operative Progress Note H&P Reviewed The H&P was reviewed, patient examined and no changes noted. Date Seen by Provider: Feb 04, 2021 Time Seen by Provider: 12:00 Date H&P Reviewed: Feb 04, 2021 Time H&P Reviewed: 12:00 Pre-Operative Diagnosis: chronic calculous cholecystitits DELBERT LOPEZ MD Feb 04, 2021 12:48
[2021-02-04] MEDS ORDERED: HYDR-3817 PO (12:51)
--- NOTE | 2021-02-04 12:51 | Discharge Inst-Surgical ---
D/C Lap Instructions-JOHN New, Converted, or Re-Newed RX: RX on Chart Follow Up Appt in 2 weeks Activity as tolerated No driving for 24 hours No driving while on pain medications Incentive Spirometry use every 2 hours while awake Regular Diet Symptoms to Report: Fever over 101 degree F, Nausea/Vomiting Infection Signs and Symptoms to report: Increased redness, Foul odor of wound, Increased drainage Bathing instructions: May shower Operative Area Clean/Dry; Keep incision clean/dry If any problems/questions: Contact your physician or go to Emergency Room DELBERT LOPEZ MD Feb 04, 2021 12:51
[2021-02-04] MEDS ORDERED: morphine INJ 10 MG/ML 1ML (SYR OR VIAL) IVP PRN ×3 (13:00)
[2021-02-04] MEDS ORDERED: ACETAMINOPHEN 325 MG TABLET PO PRN (13:00)
[2021-02-04] MEDS ORDERED: ONDANSETRON 4 MG/2 ML (SDV) Z0FRAN IVP PRN (13:00)
[2021-02-04] MEDS ORDERED: oxyCODONE/APAP 5/325MG (PERCOCET 5) TABLET PO PRN (13:00)
[2021-02-04] MEDS ORDERED: ASPI-999 PO (13:18)
[2021-02-04] MEDS ORDERED: HYDROmorphone 2 MG/ML VIAL (DILAUDID) ONE (13:52)
--- NOTE | 2021-02-04 13:54 | Progress Note-Post Operative ---
Post-Operative Progess Note Surgeon (s)/Screen Making Supervisor (s) Surgeon DELBERT LOPEZ MD Screen Making Supervisor: ousmane anderson FREIGHT [employer] BRAKE FITTER Pre-Operative Diagnosis chronic calculous cholecystitits Post-Operative Diagnosis same Procedure & Operative Findings Date of Procedure 02/04/21 Procedure Performed/Findings laparoscopic cholecystectomy Anesthesia Type get Estimated Blood Loss Estimated blood loss (mL): minimal Specimens/Packing Specimens Removed gallbladder DELBERT LOPEZ MD Feb 04, 2021 13:54
[2021-02-04] MEDS ORDERED: fentaNYL INJ 100 MCG/2 ML AMP IVP ONE (14:15)
[2021-02-04] MEDS ORDERED: HYDROmorphone 2 MG/ML VIAL (DILAUDID) IV ONE (14:15)
[2021-02-04] MEDS ORDERED: SEVOFLURANE (ULTANE) 15 ML INHAL SOLN ONE (14:16)
--- NOTE | 2021-02-04 14:22 | Anesthesia-General Post-Op ---
General Patient Condition Mental Status/LOC: Same as Preop Cardiovascular: Satisfactory Nausea/Vomiting: Absent Respiratory: Satisfactory Pain: Controlled Complications: Absent Post Op Complications Complications None Follow Up Care/Instructions Patient Instructions None needed. Anesthesia/Patient Condition Patient Condition Patient is doing well, is C/O pain especially with his pain status preop d/t low back pain after surgery, stable vital signs, no apparent adverse anesthesia problems. JUDIE ROSALES DO Feb 04, 2021 14:22
[2021-02-04] MEDS ORDERED: LABETALOL HCL 20 MG/4 ML VIAL ONE (14:23)
[2021-02-04] MEDS: ONDANSETRON 4 MG/2 ML (SDV) Z0FRAN IVP PRN ×2 (14:25→14:46)
[2021-02-04] MEDS ORDERED: LABETALOL HCL 20 MG/4 ML VIAL IV PRN (14:30)
[2021-02-04] MEDS ORDERED: HYDROcodone/APAP 7.5 MG/325 MG (LORTAB, LORCET PLUS) TABLET PO ONE (15:30)
--- NOTE | 2021-02-05 00:26 | OPERATIVE REPORT ---
DATE OF SERVICE: 02/04/2021 ATTENDING PRIMARY CARE PHYSICIAN: Bessy Camara APRN PREOPERATIVE DIAGNOSIS: Symptomatic chronic calculous cholecystitis. POSTOPERATIVE DIAGNOSES: Symptomatic chronic calculous cholecystitis, liver steatosis. PROCEDURE: Laparoscopic cholecystectomy. SURGEON: Delbert Lopez MD. FLASK CARRIER: Tin Morales APRN. ANESTHESIA: General endotracheal. ESTIMATED BLOOD LOSS: Minimal. FINDINGS: Symptomatic chronic calculous cholecystitis, liver steatosis. DISPOSITION: The patient tolerated the procedure well. INDICATIONS: The patient is a 55-year-old male, who has been seen twice in the Emergency Department with pain in the right upper abdominal quadrant following a meal, which was associated with nausea. Upon further questioning, he reports that he has had symptoms like this before in the past few years; however, this was initially mild and has become much more frequent as well as much more severe. He reports usually after eating a significant meal, he would have abdominal bloating. This will be followed by pain in the right upper abdominal quadrant. An ultrasound was performed, which was not well visualized; however, questionable stones versus gallbladder polyp. DESCRIPTION OF PROCEDURE: The patient was brought to the operating room, laid supine on the table. After adequate IV pain and sedative medications and general endotracheal intubation, the abdomen was prepped and draped in standard surgical fashion. A 0.5% Marcaine with epinephrine was then used to anesthetize overlying skin and left upper abdominal quadrant and a transverse skin incision made using a 15 blade. An 0 silk suture was applied to the medial aspect incision for retraction and a Veress needle inserted with a low opening pressure of 0 mmHg and the abdomen was then insufflated to 15 mmHg pressure. The Veress needle removed and a 5 mm XL trocar placed followed by a 5 mm 45-degree angle laparoscope visualizing the peritoneal cavity. A 4-quadrant abdominal exploration was performed. There was significant hepatomegaly. There was no gallbladder wall inflammation; however, there were omental adhesions towards the fundus and body of the gallbladder consistent with inflammation. Under direct visualization, we then proceed to place a supraumbilical 10 mm port after the skin and peritoneal lining were anesthetized using 0.5% Marcaine with epinephrine and a transverse skin incision made using 15 blade. In a similar manner, two right upper abdominal quadrant 5 mm ports were placed. The patient was then placed in steep reverse Trendelenburg position as well as plane right side up, left side down. The fundus of the gallbladder was then retracted anteriorly and superiorly and the omental adhesions were taken down using blunt dissection as well as electrocautery on the hook instrument. The hepatoduodenal ligament was then dissected with blunt dissection as well as electrocautery using the hook instrument as well as a [place] dissector. The entire critical view of safety was identified including the triangle of Calot as well as the cystic duct and artery as only two structures going into the gallbladder as well as the cystic plate behind the proximal gallbladder. A timeout was then taken and the cystic duct and artery were then clipped proximally, distally and cut with EndoShears. The gallbladder was then dissected off the liver bed using electrocautery on hook instrument with visualization of good hemostasis as well as no leaking ducts of Luschka. The gallbladder was removed through the 10 mm port site using an EndoCatch bag. The 10 mm port site fascia and peritoneum were then closed under direct visualization using a Reji-Eve device and 0 Vicryl suture. The abdomen was desufflated and the remaining ports removed. All skin incisions were closed using 4-0 Monocryl running subcuticular sutures. Wounds were then cleaned and covered with Dermabond. The patient tolerated the procedure well. We will start IV normal pain medication as well as a clear liquid diet. Once he is tolerating clears, has good pain control with oral pain medications, ambulating well, we will discharge him home where he will be instructed to do no heavy lifting or exertion for the next two weeks. Job ID: [id number] DocumentID: [id number] Dictated Date: 02/04/2021 14:00:01 Document Processor Date: 02/05/2021 00:26:22 Dictated By: DELBERT LOPEZ MD
== END 2021-02-04 16:25 | disposition home or self-care (01) ==
LOC: SDC 10:31
PROVIDERS: ATTEND Surgery
DX: K80.10 Calculus of gallbladder with chronic cholecystitis without obstruction (principal); I10 Essential (primary) hypertension; E11.9 Type 2 diabetes mellitus without complications; E66.9 Obesity, unspecified; G89.29 Other chronic pain; M54.9 Dorsalgia, unspecified; E78.5 Hyperlipidemia, unspecified; F17.210 Nicotine dependence, cigarettes, uncomplicated; Z79.899 Other long term (current) drug therapy; Z79.84 Long term (current) use of oral hypoglycemic drugs; Z79.82 Long term (current) use of aspirin; Z79.891 Long term (current) use of opiate analgesic; Z68.37 Body mass index [BMI] 37.0-37.9, adult
CPT/HCPCS: 82947; 87081; 88304

== ENCOUNTER 2021-04-02 09:16 | Outpatient (CLI) | payer MEDICARE ==
[~2021-04-02] VITALS: Ht 175.3 cm; Wt 106.2 kg
[~2021-04-02 09:16] MED LIST changes: +ASPI-999 PO; +HYDR-3817 PO
== END 2021-04-02 11:34 | disposition home or self-care (01) ==
LOC: PREOP 09:16
PROVIDERS: ATTEND Surgery
DX: Z01.818 Encounter for other preprocedural examination (principal)

== ENCOUNTER 2021-04-09 11:11 | Day surgery (SDC) | payer MEDICARE ==
[~2021-04-09] VITALS: Ht 175 cm; Wt 106.0 kg
[2021-04-09] MEDS ORDERED: LACTATED RINGERS 1,000 ML IV STA (11:17)
[2021-04-09] MEDS ORDERED: LACTATED RINGERS 1,000 ML IV ONE (11:20)
--- NOTE | 2021-04-09 11:27 | Progress Note-Pre Operative ---
Pre-Operative Progress Note H&P Reviewed The H&P was reviewed, patient examined and no changes noted. Date Seen by Provider: Apr 09, 2021 Time Seen by Provider: 11:15 Date H&P Reviewed: Apr 09, 2021 Time H&P Reviewed: 11:15 Pre-Operative Diagnosis: hx polyps/screening DELBERT LOPEZ MD Apr 09, 2021 11:27
--- NOTE | 2021-04-09 11:28 | Discharge Inst-Surgical ---
D/C Lap Instructions-JOHN Follow Up Activity as tolerated High Fiber Diet 25g or more per day Avoid Alcohol, Caffeine, Spicy [place] and Acid foods. Drink 64 fluid oz or more of fluids per day. Symptoms to Report: Fever over 101 degree F, Nausea/Vomiting If any problems/questions: Contact your physician or go to Emergency Room DELBERT LOPEZ MD Apr 09, 2021 11:28
[2021-04-09 11:30] VITALS: BP 120/84
[2021-04-09] MEDS ORDERED: ONDANSETRON 4 MG/2 ML (SDV) Z0FRAN IVP PRN (11:30)
[2021-04-09] MEDS ORDERED: ONDANSETRON 4 MG (ZOFRAN) ORAL DISSOLVE TAB PO PRN (11:30)
[2021-04-09] MEDS ORDERED: LIDOCAINE JELLY 2% 6 ML SYRINGE MM PRN (11:30)
[2021-04-09] MEDS ORDERED: PROPOFOL INJECTION 50 ML IV ONE (12:51)
[2021-04-09 13:34] VITALS: BP 81/51
[2021-04-09 13:39] VITALS: BP 83/53
[2021-04-09 13:40] VITALS: BP 83/53
--- NOTE | 2021-04-09 13:51 | Anesthesia-General Post-Op ---
MAC Patient Condition Mental Status/LOC: Same as Preop Cardiovascular: Satisfactory Nausea/Vomiting: Absent Respiratory: Satisfactory Pain: Controlled Complications: Absent Post Op Complications Complications None Follow Up Care/Instructions Patient Instructions None needed. Anesthesiology Discharge Order Discharge Order Patient is doing well, no complaints, stable vital signs, no apparent adverse anesthesia problems. No complications reported per nursing. LUCAS RUBIO CRNA Apr 09, 2021 13:51
--- NOTE | 2021-04-09 13:56 | Progress Note-Post Operative ---
Post-Operative Progess Note Surgeon (s)/Hvac Technician Residential (s) Surgeon DELBERT LOPEZ MD Hvac Technician Residential: none Pre-Operative Diagnosis hx polyps/screening Post-Operative Diagnosis chronic stage 2 ext and int hemorrhoids. Procedure & Operative Findings Date of Procedure 04/09/21 Procedure Performed/Findings colonoscopy Anesthesia Type mac Estimated Blood Loss Estimated blood loss (mL): minimal Specimens/Packing Specimens Removed none DELBERT LOPEZ MD Apr 09, 2021 13:56
[2021-04-09 14:10] VITALS: BP 105/63
[2021-04-09 14:20] VITALS: BP 105/63
--- NOTE | 2021-04-09 16:49 | OPERATIVE REPORT ---
DATE OF SERVICE: 04/09/2021 ATTENDING PRIMARY CARE PHYSICIAN: Dr. Camara at [facility]. PREOPERATIVE DIAGNOSIS: Screening colonoscopy. POSTOPERATIVE DIAGNOSIS: Chronic stage II external and internal hemorrhoids. PROCEDURE: Colonoscopy. SURGEON: Delbert Leon MD ANESTHESIA: Monitored anesthesia care. ESTIMATED BLOOD LOSS: Minimal. FINDINGS: Same as postoperative diagnoses. DISPOSITION: The patient tolerated the procedure well. INDICATIONS: The patient is a 65-year-old male in need of a screening colonoscopy. He states his last colonoscopy was approximately 6 years ago and he was found to have some polyps, which were biopsied and found to be benign. He does have occasional episodes of constipation; however, has tried to incorporate a high fiber diet with fruits and vegetables. He does not know any of first-degree relatives with history of colon cancer. DESCRIPTION OF PROCEDURE: The patient was brought to the endoscopy suite, laid in the left lateral decubitus position. After adequate IV pain and sedative medications and monitored anesthesia care, digital rectal examination was performed. Mild chronic stage II external and internal hemorrhoids were identified, which were not actively edematous nor inflamed and no bleeding. Normal sphincter tone was felt and there were no palpable masses. Prostate gland was palpable and appeared normal. The endoscope was then intubated to the anus and rectum gently insufflated. The endoscope was then advanced through the valves of Hernandez of the rectum with no polyps or any neoplasms identified. The endoscope was then advanced through the sigmoid colon where no diverticulosis identified. The endoscope was then advanced to the remainder of the descending, transverse and ascending colon to the cecum, which were normal. There were no polyps or any neoplasms identified. The endoscope was then slowly withdrawn while taking a second look and suctioning of residual air with no additional findings. The patient tolerated the procedure well. We will recommend continued lifestyle and dietary accommodation and we would recommend a fiber supplement and should equal or exceed 30 grams daily as well as significant amounts of water to promote soft stools on a daily basis. If he is asymptomatic, he does not need another colonoscopy in another 10 years. Job ID: [id number] DocumentID: [id number] Dictated Date: 04/09/2021 13:40:39 Host Hostess Date: 04/09/2021 16:49:04 Dictated By: DELBERT LEON MD
== END 2021-04-09 14:30 | disposition home or self-care (01) ==
LOC: ENDO 11:11
PROVIDERS: ATTEND Surgery
DX: Z12.11 Encounter for screening for malignant neoplasm of colon (principal); K64.1 Second degree hemorrhoids; K64.4 Residual hemorrhoidal skin tags; I10 Essential (primary) hypertension; E11.9 Type 2 diabetes mellitus without complications; E78.5 Hyperlipidemia, unspecified; K21.9 Gastro-esophageal reflux disease without esophagitis; E66.9 Obesity, unspecified; Z68.34 Body mass index [BMI] 34.0-34.9, adult; Z86.010 Personal history of colon polyps; Z79.899 Other long term (current) drug therapy; Z79.82 Long term (current) use of aspirin; Z79.84 Long term (current) use of oral hypoglycemic drugs; F17.210 Nicotine dependence, cigarettes, uncomplicated
CPT/HCPCS: 82947; G0105

== ENCOUNTER → 2021-04-18 | Outpatient (CLI) | payer MEDICARE ==
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
== END ==
LOC: RAD 13:15
DX: M47.814 Spondylosis without myelopathy or radiculopathy, thoracic region (principal); M47.816 Spondylosis without myelopathy or radiculopathy, lumbar region; M48.061 Spinal stenosis, lumbar region without neurogenic claudication; M48.07 Spinal stenosis, lumbosacral region; M43.8X6 Other specified deforming dorsopathies, lumbar region; Z98.1 Arthrodesis status
CPT/HCPCS: 72146; 72148

== ENCOUNTER → 2021-04-21 | Outpatient (RCR) | payer MEDICARE | END | disposition home or self-care (01) | PROVIDERS: ATTEND Registered Nurse | DX: M51.16 Intervertebral disc disorders with radiculopathy, lumbar region (principal); I10 Essential (primary) hypertension | CPT/HCPCS: 97110; 97163; G0283 ==

== ENCOUNTER 2021-05-13 18:20 | Emergency (ER) | payer MEDICARE ==
[~2021-05-13] VITALS: Ht 175.2 cm; Wt 104.3 kg
[2021-05-13 18:40] VITALS: BP 148/104
[2021-05-13 19:30] LABS: BASOPHILS # (AUTO) 0.1 10^3/uL (0.0-0.1); BASOPHILS % (AUTO) 1 % (0-10); EOSINOPHILS # (AUTO) 0.3 10^3/uL (0.0-0.3); EOSINOPHILS % (AUTO) 5 % (0-10); HEMATOCRIT 49 % (40-54); HEMOGLOBIN 16.5 g/dL (13.3-17.7); LYMPHOCYTES # (AUTO) 2.4 10^3/uL (1.0-4.0); LYMPHOCYTES % (AUTO) 32 % (12-44); MEAN CORPUSCULAR HEMOGLOBIN 30 pg (25-34); MEAN CORPUSCULAR HGB CONC 34 g/dL (32-36); MEAN CORPUSCULAR VOLUME 91 fL (80-99); MEAN PLATELET VOLUME 9.4 fL (9.0-12.2); MONOCYTES # (AUTO) 0.5 10^3/uL (0.0-1.0); MONOCYTES % (AUTO) 7 % (0-12); NEUTROPHILS # (AUTO) 4.1 10^3/uL (1.8-7.8); NEUTROPHILS % (AUTO) 55 % (42-75); PLATELET COUNT 298 10^3/uL (130-400); WHITE BLOOD COUNT 7.5 10^3/uL (4.3-11.0)
[2021-05-13] MEDS ORDERED: diphenhydrAMINE 50 MG/ML INJ (BENADRYL) IVP ONE (19:30)
[2021-05-13] MEDS ORDERED: PROCHLORPERAZINE 10 MG/2ML INJ (COMPAZINE) IV ONE (19:30)
[2021-05-13] MEDS ORDERED: KETOROLAC 30 MG/ML VIAL IVP ONE (19:30)
--- NOTE | 2021-05-13 19:32 | ED Headache ---
General Chief Complaint: Head/Cervical Problems Stated Complaint: SEVER STARK Nursing Triage Note: PT C/O SEVERE HEADACHE THAT STARTED YESTERDAY. HE STATES HE WENT TO [facility] YESTERDAY BUT HEADACHE IS GETTING WORSE. Source: patient Exam Limitations: no limitations History of Present Illness Date Seen by Provider: May 13, 2021 Time Seen by Provider: 19:20 Initial Comments To ER by private vehicle with reports of a severe global headache that started 3 days ago. He went to walk-in clinic yesterday and was given a prescription for nabumetone but it does not seem to be helping. He reports high blood pressure. Denies any vision changes but he does have some nausea with it. No history of h eadaches prior to this. No fevers no chills no head injury. Timing/Duration: other (2 to 3 days) Severity/Quality: moderate Prior Headaches/Recent Trauma: no recent headache/trauma Associated Symptoms: denies symptoms Allergies and Home Medications Allergies Coded Allergies: No Known Allergies (Verified Allergy, Unknown, 10/20/20) Patient Home Medication List Home Medication List Reviewed: Yes Amitriptyline HCl (Amitriptyline HCl) 50 Mg Tablet, 50 MG PO HS, (Reported) Entered as Reported by: ISRAEL NAVARRETE on 01/31/21 1038 Aspirin (Aspirin) 81 Mg Tab.chew, 81 MG PO DAILY, (Reported) Entered as Reported by: MINISTERIO MOORE on 02/04/21 1318 Atorvastatin Calcium (Atorvastatin Calcium) 40 Mg Tablet, 40 MG PO HS, (Reported) Entered as Reported by: ISRAEL NAVARRETE on 01/31/21 1038 Buprenorphine (Buprenorphine) 1 Each Patch.tdwk, 1 EA TD WEEK, (Reported) Entered as Reported by: ISRAEL NAVARRETE on 01/31/21 1038 Empagliflozin (Jardiance) 10 Mg Tablet, 10 MG PO DAILY, (Reported) Entered as Reported by: ISRAEL NAVARRETE on 01/31/21 1038 Flecainide Acetate (Flecainide Acetate) 100 Mg Tablet, 100 MG PO BID, (Reported) Entered as Reported by: ISRAEL NAVARRETE on 01/31/21 1038 Gabapentin (Gabapentin) 600 Mg Tablet, 600 MG PO QID, (Reported) Entered as Reported by: ISRAEL NAVARRETE on 01/31/21 1038 Hydrocodone/Acetaminophen (Hydrocodone-Acetamin 7.5-325) 1 Each Tablet, 1 EACH PO Q4H Prescribed by: DELBERT LOPEZ on 02/04/21 1251 Lisinopril (Lisinopril) 40 Mg Tablet, 40 MG PO DAILY, (Reported) Entered as Reported by: ISRAEL NAVARRETE on 01/31/21 1038 Nifedipine (Nifedipine ER) 90 Mg Tablet.er, 90 MG PO DAILY, (Reported) Entered as Reported by: ISRAEL NAVARRETE on 01/31/21 1038 Pantoprazole Sodium (Pantoprazole Sodium) 40 Mg Tablet.dr, 40 MG PO DAILY, (Reported) Entered as Reported by: ISRAEL NAVARRETE on 01/31/21 1038 Sucralfate (Sucralfate) 1 Gm Tablet, 1 GM PO BID, (Reported) Entered as Reported by: ISRAEL NAVARRETE on 01/31/21 1038 Review of Systems Review of Systems Constitutional: see HPI; No chills, No fever Eyes: No Symptoms Reported; Denies Photophobia Ears, Nose, Mouth, Throat: no symptoms reported Respiratory: no symptoms reported Cardiovascular: no symptoms reported Genitourinary: no symptoms reported Musculoskeletal: no symptoms reported Skin: no symptoms reported Psychiatric/Neurological: No Symptoms Reported Past Arburvy-Qkujua-Ovhbbi Hx Patient Social History Tobacco Use?: No Substance use?: No Alcohol Use?: No Pt feels they are or have been: No Immunizations Up To Date First/Initial COVID19 Vaccinat: MAY 2020 Second COVID19 Vaccination Daniel: JUNE 2020 Third COVID19 Vaccination Date: DECEMBER 2020 Seasonal Allergies Seasonal Allergies: No Past Medical History Surgeries: Yes (back x2, L ankle sx, L shoulder, TURP) Gallbladder Respiratory: No Currently Using CPAP: No Currently Using BIPAP: No Cardiac: Yes High Cholesterol, Hypertension, Irregular Heartbeat Neurological: Yes (possible stroke) Genitourinary: Yes (hx BPH) Benign Prostatic Hyperpl Gastrointestinal: Yes (hx Hep A) Gall Bladder Disease Musculoskeletal: Yes Arthritis, Chronic Back Pain Endocrine: Yes Diabetes, Non-Insulin dep HEENT: No Cancer: No Psychosocial: No Integumentary: No Blood Disorders: No Physical Exam Vital Signs Vital Signs - First Documented 05/13/21 18:40 Temp 37.2 Pulse 75 Resp 18 B/P (MAP) 148/104 (119) Pulse Ox 95 O2 Delivery Room Air Capillary Refill : Less Than 3 Seconds Height, Weight, BMI Height: '" Weight: lbs. oz. kg; 33.00 BMI Method: General Appearance: WD/WN, no apparent distress HEENT: PERRL/EOMI, normal ENT inspection, TMs normal Neck: non-tender, full range of motion Respiratory: normal breath sounds, no respiratory distress, no accessory muscle use Gastrointestinal: normal bowel sounds, non tender, soft Extremities: normal range of motion, non-tender Psychiatric: alert, oriented x 3 Crainal Nerves: normal hearing, normal speech, PERRL Skin: normal color, warm/dry Progress/Results/Core Measures Results/Orders Lab Results Laboratory Tests Test 05/13/21 18:50 Range/Units White Blood Count 7.5 4.3-11.0 10^3/uL Red Blood Count 5.43 4.30-5.52 10^6/uL Hemoglobin 16.5 13.3-17.7 g/dL Hematocrit 49 40-54 % Mean Corpuscular Volume 91 80-99 fL Mean Corpuscular Hemoglobin 30 25-34 pg Mean Corpuscular Hemoglobin Concent 34 32-36 g/dL Red Cell Distribution Width 13.3 10.0-14.5 % Platelet Count 298 130-400 10^3/uL Mean Platelet Volume 9.4 9.0-12.2 fL Immature Granulocyte % (Auto) 0 % Neutrophils (%) (Auto) 55 42-75 % Lymphocytes (%) (Auto) 32 12-44 % Monocytes (%) (Auto) 7 0-12 % Eosinophils (%) (Auto) 5 0-10 % Basophils (%) (Auto) 1 0-10 % Neutrophils # (Auto) 4.1 1.8-7.8 10^3/uL Lymphocytes # (Auto) 2.4 1.0-4.0 10^3/uL Monocytes # (Auto) 0.5 0.0-1.0 10^3/uL Eosinophils # (Auto) 0.3 0.0-0.3 10^3/uL Basophils # (Auto) 0.1 0.0-0.1 10^3/uL Immature Granulocyte # (Auto) 0.0 0.0-0.1 10^3/uL Erythrocyte Sedimentation Rate 7 0-30 MM/HR Prothrombin Time 12.5 12.2-14.7 SEC INR Comment 0.9 0.8-1.4 Sodium Level 137 135-145 MMOL/L Potassium Level 3.7 3.6-5.0 MMOL/L Chloride Level 105 98-107 MMOL/L Carbon Dioxide Level 22 21-32 MMOL/L Anion Gap 10 5-14 MMOL/L Blood Urea Nitrogen 14 7-18 MG/DL Creatinine 1.01 0.60-1.30 MG/DL Estimat Glomerular Filtration Rate 88 BUN/Creatinine Ratio 14 Glucose Level 123 H 70-105 MG/DL Calcium Level 9.4 8.5-10.1 MG/DL Corrected Calcium 9.2 8.5-10.1 MG/DL Total Bilirubin 0.6 0.1-1.0 MG/DL Aspartate Amino Transf (AST/SGOT) 24 5-34 U/L Alanine Aminotransferase (ALT/SGPT) 40 0-55 U/L Alkaline Phosphatase 82 40-136 U/L C-Reactive Protein High Sensitivity 0.25 0.00-0.50 MG/DL Total Protein 7.4 6.4-8.2 GM/DL Albumin 4.2 3.2-4.5 GM/DL My Orders Orders - JURGEN GROVES APRN Erythrocyte Sedimentation Rate (05/13/21 19:21) Hs C Reactive Protein (05/13/21 19:21) Ct Head Wo (05/13/21 19:21) Cbc With Automated Diff (05/13/21 19:21) Comprehensive Metabolic Panel (05/13/21 19:21) Protime With Inr (05/13/21 19:21) Ed Iv/Invasive Line Start (05/13/21 19:21) Ketorolac Injection (Toradol Injection) (05/13/21 19:30) Prochlorperazine Injection (Compazine In (05/13/21 19:30) Diphenhydramine Injection (Benadryl Inje (05/13/21 19:30) Medications Given in ED Current Medications Medications Dose Ordered Sig/Kristin Route Start Time Stop Time Status Last Admin Dose Admin Diphenhydramine HCl 25 mg ONCE ONCE IVP 05/13/21 19:30 05/13/21 19:31 DC 05/13/21 19:48 25 MG Ketorolac Tromethamine 15 mg ONCE ONCE IVP 05/13/21 19:30 05/13/21 19:31 DC 05/13/21 19:48 15 MG Prochlorperazine Edisylate 5 mg ONCE ONCE IV 05/13/21 19:30 05/13/21 19:31 DC 05/13/21 19:48 5 MG Vital Signs/I&O 05/13/21 18:40 Temp 37.2 Pulse 75 Resp 18 B/P (MAP) 148/104 (119) Pulse Ox 95 O2 Delivery Room Air Blood Pressure Mean: 119 Departure Impression Primary Impression: Headache Disposition: HOME, SELF-CARE Condition: Stable Departure-Patient Inst. Decision time for Depature: 20:31 Referrals: LEANA XIONG APRN (PCP) Primary Care Physician Patient Instructions: Headache, Adult ED Add. Discharge Instructions: 1. Return ER for any concerns. Follow-up with your doctor later this week. All discharge instructions reviewed with patient and/or family. Voiced understjd pendleton. JURGEN GROVES APRN May 13, 2021 19:32
[2021-05-13 19:40] LABS: INR 0.9 (0.8-1.4); PROTHROMBIN TIME PATIENT 12.5 SEC (12.2-14.7)
[2021-05-13 19:47] LABS: ALBUMIN 4.2 GM/DL (3.2-4.5); BILIRUBIN,TOTAL 0.6 MG/DL (0.1-1.0); CALCIUM 9.4 MG/DL (8.5-10.1); CREATININE SERUM 1.01 MG/DL (0.60-1.30); POTASSIUM 3.7 MMOL/L (3.6-5.0); TOTAL PROTEIN 7.4 GM/DL (6.4-8.2)
--- NOTE | 2021-05-13 19:48 | Diagnostic Imaging Report ---
EXAMINATION: CT head without contrast. TECHNIQUE: Multiple contiguous axial images were obtained through the brain without the use of intravenous contrast. All CT scans use one or more of the following dose optimizing techniques: automated exposure control, MA and/or KvP adjustment based on patient size and exam type or iterative reconstruction. HISTORY: Headache COMPARISON: None available. FINDINGS: The knapp-white matter differentiation is normal. No mass effect or midline shift. The ventricles are normal in size and configuration. Basilar cisterns are patent. There are no intra- or extra-axial fluid collections. There is no intracranial hemorrhage. The orbits are normal. There is right maxillary sinus mucosal disease. Mastoid air cells are clear. No soft tissue abnormality is seen. No osseus lesions or fractures are seen. IMPRESSION: 1. No acute intracranial abnormality. Dictated by: Dictated on workstation # [id number]
[2021-05-13 20:20] LABS: ERYTHROCYTE SEDIMENTATION RATE 7 MM/HR (0-30)
== END 2021-05-13 21:00 | disposition home or self-care (01) ==
LOC: EDUNIT# 18:20 → ER 18:23
DX: R51.9 Headache, unspecified (principal)
CPT/HCPCS: 36415; 70450; 80053; 85025; 85610; 85652; 86141; 96374; 96375

== ENCOUNTER → 2021-05-22 | Outpatient (RCR) | payer MEDICARE, OTHER | END | disposition home or self-care (01) | PROVIDERS: ATTEND Registered Nurse | DX: M51.16 Intervertebral disc disorders with radiculopathy, lumbar region (principal); I10 Essential (primary) hypertension | CPT/HCPCS: 97110; G0283 ==

== ENCOUNTER 2021-05-30 13:03 | Outpatient (RCR) | payer MEDICARE, OTHER | END 2021-06-21 | disposition home or self-care (01) | PROVIDERS: ATTEND Registered Nurse | DX: M51.16 Intervertebral disc disorders with radiculopathy, lumbar region (principal); I10 Essential (primary) hypertension; E11.9 Type 2 diabetes mellitus without complications; Z98.890 Other specified postprocedural states ==

== ENCOUNTER → 2021-06-05 | Outpatient (CLI) | payer MEDICARE ==
[~2021-06-05] MED LIST changes: +CATHETER FLUSH 10 ML SYR IVP PRN
== END ==
LOC: CARD 11:30
PROVIDERS: ATTEND Internal Medicine Cardiovascular Disease
DX: I48.0 Paroxysmal atrial fibrillation (principal); I51.7 Cardiomegaly
CPT/HCPCS: 93306

== ENCOUNTER → 2021-06-12 | Outpatient (CLI) | payer MEDICARE ==
[~2021-06-12] MED LIST changes: -CATHETER FLUSH 10 ML SYR IVP PRN; +REGADENOSON 0.4 MG/5 ML SYR (LEXISCAN) IV ONE
[2021-06-12] MEDS: CATHETER FLUSH 10 ML SYR IVP PRN ×2 (08:12→09:36)
[2021-06-12 09:34] VITALS: BP 112/78
--- NOTE | 2021-06-13 09:02 | NUCLEAR STRESS TEST ---
REGADENOSON NUCLEAR STRESS Date of procedure: 06/12/2021. Primary care provider: Luis Carlos Arthur APRN Admitting physician: Demetrius Shields Jr., MD. INDICATION: Paroxysmal atrial fibrillation. BASELINE ELECTROCARDIOGRAM: Sinus bradycardia at 58 bpm with low voltage in the precordial leads and nonspecific intraventricular conduction delay. STRESS TEST PROCEDURE: The patient was administered 0.4 mg of intravenous Regadenoson. The resting heart rate was 58 bpm and the peak heart rate was 82 bpm. The resting blood pressure was 112/78 mmHg and the minimum blood pressure was 112/78 mmHg. This represents a normal heart rate and a blunted blood pressure response to Regadenoson. The test was stopped due to the protocol. There was no chest discomfort during the test. There were no arrhythmias during the test. There were no significant stress induced electrocardiogram changes. NUCLEAR PROCEDURE: The patient was administered 10.8 mCi of intravenous technetium 99m Tetrofosmin at rest for the rest images. The patient was subsequently administered 29.2 mCi of intravenous technetium 99m Tetrofosmin at peak stress for the stress images. Following an appropriate wait after each injection, imaging was obtained. The images were subsequently processed and reformatted in the usual views. Gated imaging was obtained. The image quality was adequate with a mild degree of gastrointestinal attenuation artifact. CT attenuation correction was used as a adjunct to standard imaging. Both the corrected and uncorrected images were reviewed for interpretation. NUCLEAR RESULTS: There was a small, moderate intensity, fixed apical defect with no evidence of inducible ischemia. There was normal left ventricular chamber size with an end-diastolic volume of 70 mL and an end-systolic volume of 33 mL. There was no evidence of transient ischemic dilatation. The TID ratio was 1.05. There was normal wall motion in all segments with a calculated ejection fraction of 53%. IMPRESSION: 1. Normal heart rate and a blunted blood pressure response to regadenoson. 2. There was no chest discomfort, arrhythmias, or electrocardiogram changes during the test. 3. There was a small, moderate intensity, fixed apical defect with no evidence of inducible ischemia. 4. There was normal wall motion in all segments with a calculated ejection fraction of 53%. 5. This is an abnormal result although represents low risk for possible future coronary ischemic events. Certain portions of this document may have been dictated utilizing voice recognition technology. Inherent to this technology, typographical and grammatical errors may exist. As much as I am diligent to identify and correct these mistakes, some errors may remain in the document. DEMTERIUS SHIELDS JR, MD Jun 13, 2021 09:02
== END ==
LOC: CARD 09:45
PROVIDERS: ATTEND Internal Medicine Cardiovascular Disease
DX: I48.0 Paroxysmal atrial fibrillation (principal)
CPT/HCPCS: 78452; 93017; A9502

== ENCOUNTER → 2021-07-07 | Outpatient (CLI) | payer MEDICARE, OTHER ==
[~2021-07-07] MED LIST changes: -REGADENOSON 0.4 MG/5 ML SYR (LEXISCAN) IV ONE
--- NOTE | 2021-07-07 15:21 | Diagnostic Imaging Report ---
PROCEDURE: MRI left joint lower extremity without contrast. TECHNIQUE: Multiplanar, multisequence non contrast-enhanced MRI of the left lower extremity was accomplished. INDICATION: Fell, knee pain. EXAMINATion: Left knee MRI without contrast 07/08/2011. FINDINGS: The extensor mechanism is intact. The ACL and PCL intact. The MCL and the lateral collateral ligamentous complex appear intact. There is a horizontal oblique tear within the posterior horn of the medial meniscus which extends down to the tibial surface. The medial meniscal body appears blunted on the coronal images consistent with a focal radial tear. There is mild hyperintensity within the lateral meniscal body best seen on the coronal images, a small tear in the region is not excluded. There is mild thinning of the cartilage in the medial and lateral joint compartments. There is moderate thinning of the cartilage overlying the patella. There is a mild lateral patellar tilt. There is a small joint effusion. There is a small Christine's cyst. There is mild subcutaneous edema throughout the anterior knee. There is no acute osseous abnormality. IMPRESSION: 1. Tear of the posterior horn and body of the medial meniscus with a possible tear involving the body of the lateral meniscus as well. 2. Ligaments and tendons intact 3. Tricompartmental degenerative disease. Dictated by: Dictated on workstation # [id number]
== END ==
LOC: RAD 12:30
PROVIDERS: ATTEND Nurse Practitioner
DX: S83.222A Peripheral tear of medial meniscus, current injury, left knee, initial encounter (principal); M17.12 Unilateral primary osteoarthritis, left knee
CPT/HCPCS: 73721

== ENCOUNTER 2021-07-15 10:00 | Outpatient (RCR) | payer MEDICARE | END 2021-07-22 | disposition home or self-care (01) | LOC: CARD 10:00 | PROVIDERS: ATTEND Internal Medicine Cardiovascular Disease | DX: I48.0 Paroxysmal atrial fibrillation (principal) ==

== ENCOUNTER 2021-07-27 19:49 | Emergency (ER) | payer MEDICARE ==
[~2021-07-27] VITALS: Ht 175 cm; Wt 104.0 kg
[2021-07-27 20:06] VITALS: BP 146/101
--- NOTE | 2021-07-27 20:26 | ED Lower Extremity ---
General Chief Complaint: Lower Extremity Stated Complaint: L ANKLE BRUISING / SWELLING Source: patient Exam Limitations: no limitations (SANA FISH) History of Present Illness Date Seen by Provider: Jul 27, 2021 Time Seen by Provider: 20:22 Initial Comments Patient is a 55-year-old male who presents ED with bruising to his left ankle. Patient states he went to a car show in [place] yesterday. He Did spend most of the day walking. He came home noted some bruising to the left medial ankle. Woke up this morning with circumferential bruising. Denies of any obvious swelling or redness. He does have a history of low back injury with radiculopathy pain in his lower legs. He is currently on gabapentin. he states that he has changes of sensation to his feet. He cannot recall any previous injury. Normal active range of motion. Denies any pain with walking. States he did hit his jin about a week ago but denies of any bruising. Does have a small healing wound to the left jin. Denies fever, chest pain, shortness of breath, headache, dizziness. Patient is diabetic currently on metformin. States his blood sugar has controlled. Not currently on anticoagulants. Denies history of kidney disease (SANA FISH) Allergies and Home Medications Allergies Coded Allergies: No Known Allergies (Verified Allergy, Unknown, 10/20/20) Patient Home Medication List Home Medication List Reviewed: Yes (SANA FISH) Amitriptyline HCl (Amitriptyline HCl) 50 Mg Tablet, 50 MG PO HS, (Reported) Entered as Reported by: ISRAEL NAVARRETE on 01/31/21 1038 Aspirin (Aspirin) 81 Mg Tab.chew, 81 MG PO DAILY, (Reported) Entered as Reported by: MINISTERIO MOORE on 02/04/21 1318 Atorvastatin Calcium (Atorvastatin Calcium) 40 Mg Tablet, 40 MG PO HS, (R eported) Entered as Reported by: ISRAEL NAVARRETE on 01/31/21 1038 Buprenorphine (Buprenorphine) 1 Each Patch.tdwk, 1 EA TD WEEK, (Reported) Entered as Reported by: ISRAEL NAVARRETE on 01/31/21 1038 Empagliflozin (Jardiance) 10 Mg Tablet, 10 MG PO DAILY, (Reported) Entered as Reported by: ISRAEL NAVARRETE on 01/31/21 1038 Flecainide Acetate (Flecainide Acetate) 100 Mg Tablet, 100 MG PO BID, (Reported) Entered as Reported by: ISRAEL NAVARRETE on 01/31/21 1038 Gabapentin (Gabapentin) 600 Mg Tablet, 600 MG PO QID, (Reported) Entered as Reported by: ISRAEL NAVARRETE on 01/31/21 1038 Hydrocodone/Acetaminophen (Hydrocodone-Acetamin 7.5-325) 1 Each Tablet, 1 EACH PO Q4H Prescribed by: DELBERT LOPEZ on 02/04/21 1251 Lisinopril (Lisinopril) 40 Mg Tablet, 40 MG PO DAILY, (Reported) Entered as Reported by: ISRAEL NAVARRETE on 01/31/21 1038 Nifedipine (Nifedipine ER) 90 Mg Tablet.er, 90 MG PO DAILY, (Reported) Entered as Reported by: ISRAEL NAVARRETE on 01/31/21 1038 Pantoprazole Sodium (Pantoprazole Sodium) 40 Mg Tablet.dr, 40 MG PO DAILY, (Reported) Entered as Reported by: ISRAEL NAVARRETE on 01/31/21 1038 Sucralfate (Sucralfate) 1 Gm Tablet, 1 GM PO BID, (Reported) Entered as Reported by: ISRAEL NAVARRETE on 01/31/21 1038 Review of Systems Constitutional: No chills, No malaise, No weakness EENTM: No ear pain, No double vision, No mouth pain, No mouth swelling Respiratory: No cough, No dyspnea on exertion Cardiovascular: No chest pain, No edema Gastrointestinal: No abdominal pain, No diarrhea, No nausea, No vomiting Genitourinary: No decreased output, No discharge Musculoskeletal: No back pain, No joint pain; muscle pain, other (Leg bruising) (SANA FISH) All Other Systems Reviewed Negative Unless Noted: Yes (SANA FISH) Past Dipxugi-Spiook-Hcyiir Hx Patient Social History Tobacco Use?: No Use of E-Cig and/or Vaping dev: No Substance use?: No Alcohol Use?: No Pt feels they are or have been: No (SANA FISH) Immunizations Up To Date First/Initial COVID19 Vaccinat: MAY 2020 Second COVID19 Vaccination Daniel: JUNE 2020 Third COVID19 Vaccination Date: DECEMBER 2020 (SANA FISH) Seasonal Allergies Seasonal Allergies: No (SANA FISH) Past Medical History Surgery/Hospitalization HX: TORN MENISCUS ET ACL LT KNEE Surgeries: Yes (back x2, L ankle sx, L shoulder, TURP) Gallbladder Respiratory: No Currently Using CPAP: No Currently Using BIPAP: No Cardiac: Yes High Cholesterol, Hypertension, Irregular Heartbeat Neurological: Yes (possible stroke) Genitourinary: Yes (hx BPH) Benign Prostatic Hyperpl Gastrointestinal: Yes (hx Hep A) Gall Bladder Disease Musculoskeletal: Yes Arthritis, Chronic Back Pain Endocrine: Yes Diabetes, Non-Insulin dep HEENT: No Cancer: No Psychosocial: No Integumentary: No Blood Disorders: No (SANA FISH) Physical Exam Vital Signs Vital Signs - First Documented 07/27/21 20:06 Temp 36.3 Pulse 79 Resp 18 B/P (MAP) 146/101 (116) Pulse Ox 95 O2 Delivery Room Air (CRISTINO,JOVI K DO) Vital Signs Capillary Refill : (SANA FISH) Height, Weight, BMI Height: '" Weight: lbs. oz. kg; 32.00 BMI Method: General Appearance: WD/WN, no apparent distress HEENT: PERRL/EOMI, normal ENT inspection, TMs normal, pharynx normal Neck: non-tender, full range of motion, supple Cardiovascular: regular rate, rhythm, no edema, no gallop, no JVD Respiratory: chest non-tender, lungs clear, normal breath sounds, no respiratory distress, no accessory muscle use Gastrointestinal: normal bowel sounds, non tender, soft, no organomegaly, no pulsatile mass Back: normal inspection Ankles: bilateral ankle non-tender, bilateral ankle normal range of motion; left ankle ecchymosis Feet: bilateral foot non-tender, bilateral foot normal inspection, bilateral foot normal range of motion Neurologic/Psychiatric: area director II-XII nml as tested, no motor/sensory deficits, alert, normal mood/affect, oriented x 3 Skin: other (Circumferential bruising to the left ankle. Very minimal swelling without erythema. Dried healing wound to left jin. No surrounding redness warmth or function) (SANA FISH) Progress/Results/Core Measures Results/Orders Medications Given in ED Current Medications Medications Dose Ordered Sig/Kristin Route Start Time Stop Time Status Last Admin Dose Admin Enoxaparin Sodium 100 mg ONCE ONCE SC 07/27/21 20:30 07/27/21 20:59 DC 07/27/21 20:36 100 MG (JOVI GREGG DO) Vital Signs/I&O 07/27/21 20:06 Temp 36.3 Pulse 79 Resp 18 B/P (MAP) 146/101 (116) Pulse Ox 95 O2 Delivery Room Air (JOVI GREGG DO) Departure Communication (PCP) Patient is 55-year-old male presents ED with bruising to the left ankle. Denies of any trauma. Does have chronic radiculopathy to the lower leg secondary to previous back injury. He is diabetic type II control blood sugar. Does have a healing wound to the left jin. No surrounding redness or warmth suggesting cellulitis. Very minimal swelling to the left ankle. States he did spend most of the day yesterday walking. No specific injury. Refused x-ray. My concern would to be to rule out DVT. No history of DVT. Denies chest pain or shortness of breath. Due to limited ultrasound on the weekends ultrasound was ordered for in the morning. Patient was started on Lovenox IM here. Discussed calling with results to the ER in the morning. Patient with +2 dorsalis pedis and posterior tibialis. Normal active range of motion of the left ankle and foot. If negative recommend conservative treatment. Patient agrees with plan of action. Patient had his kidney function drawn this past April and within normal limits. No known blood disorders. Denies of any current active bleeding. Denies headache, dizziness. (SANA FISH) Impression Primary Impression: Superficial bruising of lower leg Disposition: HOME, SELF-CARE Condition: Stable Departure-Patient Inst. Decision time for Depature: 20:25 (SANA FISH) Referrals: [facility] (PCP) Primary Care Physician BOBBY CAPPS (Family) Primary Care Physician Patient Instructions: Contusion (DC) Add. Discharge Instructions: Recommend following up tomorrow for ultrasound. If any worsening symptoms return back to ED such as worsening pain, chest pain or shortness of breath. If negative recommend ice, anti-inflammatories elevation. All discharge instructions reviewed with patient and/or family. Voiced understanding. ATTENDING PHYSICIAN NOTE: I WAS PHYSICALLY PRESENT ER PHYSICIAN, BUT I WAS NOT INVOLVED IN ANY DECISION MAKING OR ANY CARE OF THIS PATIENT. (JOVI GREGG DO) SANA FISH Jul 27, 2021 20:26 JOVI GREGG DO Jul 28, 2021 03:28
[2021-07-27] MEDS ORDERED: ENOXAPARIN 100 MG/1 ML (LOVENOX) SYR SC ONE (20:30)
[2021-07-27] MEDS ORDERED: ENOXAPARIN 100 MG/1 ML (LOVENOX) SYR ONE (20:31)
== END 2021-07-27 20:56 | disposition home or self-care (01) ==
LOC: EDUNIT# 19:49 → ER 19:51
DX: M79.81 Nontraumatic hematoma of soft tissue (principal); E11.9 Type 2 diabetes mellitus without complications; Z79.84 Long term (current) use of oral hypoglycemic drugs
CPT/HCPCS: 99284

== ENCOUNTER → 2021-07-28 | Outpatient (CLI) | payer MEDICARE ==
--- NOTE | 2021-07-28 10:30 | Diagnostic Imaging Report ---
PROCEDURE: US left lower extremity venous. TECHNIQUE: Multiple real-time grayscale images were obtained over the left lower extremity in various projections. Additional duplex Doppler and color Doppler images were also obtained. INDICATION: Bruising and swelling to left lower extremity. There is no evidence of left lower extremity DVT. Left lower extremity deep venous system shows normal compressibility with normal response to augmentation and Valsalva. No fluid collection or mass is detected. IMPRESSION: No evidence of left lower extremity DVT. Dictated by: Dictated on workstation # [id number]
== END ==
LOC: RAD 09:25
PROVIDERS: ATTEND Physician Assistant
DX: S80.12XA Contusion of left lower leg, initial encounter (principal); X58.XXXA Exposure to other specified factors, initial encounter

== ENCOUNTER → 2022-12-29 | Outpatient (CLI) | payer MEDICARE ==
[~2022-12-29] MED LIST changes: +ALBU2.5V4 INH; +ASPI-1238 PO; +IBUP-2473 PO; +MTP25TSR PO; +NIFE90TA PO; -NIFE90TA40 PO; +PRD20T PO
== END ==
LOC: CARD 13:00
PROVIDERS: ATTEND Internal Medicine Cardiovascular Disease
DX: I25.10 Atherosclerotic heart disease of native coronary artery without angina pectoris (principal); I10 Essential (primary) hypertension
CPT/HCPCS: 93306